=== PATIENT | male | born 1965 | race Caucasian/White ===

== ENCOUNTER 2017-06-16 08:41 | Day surgery (SDC) | payer BC ==
[2017-06-12 13:57] VITALS: BMI 33.0
[~2017-06-16 08:41] MED LIST: LACTATED RINGERS 1,000 ML IV SCH
[2017-06-16 10:16] VITALS: TEMP 98.3
[2017-06-16] MEDS ORDERED: PROPOFOL 10 MG/ML 20 ML VIAL IV ONE (10:24)
[2017-06-16 10:58] VITALS: RESP 18
--- NOTE | 2017-06-16 11:02 | P.PCN ---
Date of Procedure: 06/16/17 Procedure(s) Performed: Procedure: Total colonoscopy and polypectomy. Preoperative diagnosis: Screening for neoplasia. Postoperative diagnosis: Sigmoid polyp snared, otherwise, exam within normal limits with no large polyps or cancer.. Preparation: HalfLytely prep. Sedation: Was provided by anesthesia. Brief clinical history: The patient is a 52-year-old male who is scheduled for this evaluation because of age as his risk factor as well as family history of colon cancer in his mother. He has no abdominal complaints, bleeding or anemia. This would be his first colonoscopy. Procedure: With the patient on his left lateral decubitus position and after informed consent and adequate sedation, the perianal area was inspected and it did not show any fissures or fistulas. There were no masses felt on digital rectal examination. The Olympus CFQ 160L video colonoscope was then inserted in the rectum in the usual fashion and advanced to the cecum. The mucosa appeared healthy. There was a 1 cm polyp in the proximal sigmoid which was snared and retrieved by suction, but there were no other polyps or tumors seen or any obvious diverticular disease or other pathology. I retroflexed the endoscope in the rectum before the endoscope was withdrawn. The patient tolerated the procedure well. Plan: The patient was reassured. He will follow up with you as planned and I recommended repeat exam in 5 years.
[2017-06-16 11:27] VITALS: BP 121/82; PULSE 86
== END 2017-06-16 11:38 | disposition home or self-care (01) ==
LOC: ORWHC2ENDO 08:41
DX: Z12.11 Encounter for screening for malignant neoplasm of colon (principal); D12.5 Benign neoplasm of sigmoid colon; Z80.0 Family history of malignant neoplasm of digestive organs; I10 Essential (primary) hypertension; I49.9 Cardiac arrhythmia, unspecified; Z79.02 Long term (current) use of antithrombotics/antiplatelets; Z79.899 Other long term (current) drug therapy
CPT/HCPCS: 88305; 45385; J2704

== ENCOUNTER 2020-06-20 12:46 | Day surgery (SDC) | payer BC ==
[2020-06-19 08:45] VITALS: BMI 33.0
[2020-06-20] MEDS ORDERED: PROPOFOL 10 MG/ML 20 ML VIAL IV ONE (13:24)
[2020-06-20] MEDS ORDERED: LIDOCAINE 1% INJ 10MG/ML (20 ML MDV) ONE (13:24)
[2020-06-20 13:25] VITALS: RESP 16; TEMP 97.3
--- NOTE | 2020-06-20 13:51 | P.PCN ---
Date of Procedure: 06/20/20 Description of Procedure: BRIEF HISTORY: Patient is a 55-year-old male with EtOH cirrhosis who presents for outpatient EGD for evaluation of varices. Currently he abstinent from alcohol. No signs or symptoms of GI bleeding. PROCEDURE PERFORMED: Esophagogastroduodenoscopy with biopsy. PREOPERATIVE DIAGNOSIS: Alcoholic cirrhosis of the liver. ESTIMATED BLOOD LOSS: Minimal. IV sedation per anesthesia. PROCEDURE: After informed consent was obtained, the patient was brought into the endoscopy unit. IV sedation was administered by Anesthesia under continuous monitoring. Initially the Olympus GIF-190 video endoscope was inserted into the mouth. Esophagus intubated without any difficulty. It was gradually advanced into the stomach and duodenum and carefully examined. The bulb and the second part of the duodenum appeared normal, with biopsies taken. The scope at this time was withd rawn to the stomach, adequately insufflated with air, and upon careful examination, mucosa of the antrum, body, cardia and the fundus appeared normal, except for some mild erythema in the antrum and body suggestive of mild gastritis biopsy. The scope was then withdrawn into the esophagus. The GE junction was located at 39 cm from the incisors. The esophagus appeared normal, except for a few columns of small varices. There were no erosions or ulcerations seen and the patient tolerated the procedure well. IMPRESSION: 1. Small varices. 2. Mild Gastritis. 3. Biopsies of the antrum and body and duodenum. RECOMMENDATIONS: The findings of this examination were discussed with the patient and his . Okay to resume diet. Okay to resume medications. Follow-up in GI clinic as scheduled, can consider initiation of nonselective beta leonardo in the outpatient setting.
[2020-06-20 14:14] VITALS: BP 126/86; PULSE 70
== END 2020-06-20 14:20 | disposition home or self-care (01) ==
LOC: ORWHC2ENDO 12:46
PROVIDERS: ATTEND Internal Medicine
DX: K70.30 Alcoholic cirrhosis of liver without ascites (principal); I85.10 Secondary esophageal varices without bleeding; F10.21 Alcohol dependence, in remission; K29.50 Unspecified chronic gastritis without bleeding; I48.91 Unspecified atrial fibrillation; I10 Essential (primary) hypertension; Z79.899 Other long term (current) drug therapy; Z79.01 Long term (current) use of anticoagulants; Z98.890 Other specified postprocedural states; Z86.711 Personal history of pulmonary embolism
CPT/HCPCS: 88305; 43239; J2001; J2704

== ENCOUNTER → 2023-04-02 | Outpatient (CLI) | payer BC ==
--- NOTE | 2023-04-02 07:36 | US ---
EXAMINATION TYPE: US liver DATE OF EXAM: 04/02/2023 COMPARISON: NONE CLINICAL INDICATION: Male, 58 years old with history of [id number] ALCOHOLIC CIRRHOSIS OF LIVER; Alcoholic cirrhosis. TECHNIQUE: Multiple sonographic images of the right upper quadrant are obtained. FINDINGS: EXAM MEASUREMENTS: Liver Length: 13.1 cm Gallbladder Wall: 0.20 cm CBD: Not well seen, measured at 0.33 cm Right Kidney: 11.8 x 5.9 x 5.0 cm SLOT TAG INSERTER NOTES: Limited due to gas. Pancreas: Tail not well seen. Liver: Appears very heterogeneous and coarse with increased echogenicity. Gallbladder: Multiple hyperechoic foci with posterior shadowing seen within. Evidence for sonographic Nugent's sign: No CBD: Not well seen, measured at 0.33 cm. Right Kidney: No hydronephrosis or masses seen IMPRESSION: 1. Hepatic steatosis. 2. Multiple gallstones.
== END | disposition home or self-care (01) ==
LOC: RADUSWWP 06:39
PROVIDERS: ATTEND Internal Medicine Gastroenterology
DX: K76.0 Fatty (change of) liver, not elsewhere classified (principal); K70.30 Alcoholic cirrhosis of liver without ascites; K80.20 Calculus of gallbladder without cholecystitis without obstruction
CPT/HCPCS: 76705